=== PATIENT | female | born 1995 | race Caucasian/White ===

== ENCOUNTER 2020-02-13 14:08 | Emergency (ER) | payer SELFPAY ==
[2020-02-13 14:16] VITALS: BP 118/59; PULSE 85; RESP 16; TEMP 36.7; O2SAT 98; BMI 23.8
--- NOTE | 2020-02-13 14:37 | ED_ITS ---
HPI - Abdominal Pain General Chief Complaint: Abdominal Pain <Darvin Owen NP - Last Filed: 02/13/20 17:53> Stated Complaint: STOMACH PAIN <Darvin Owen NP - Last Filed: 02/13/20 17:53> Time Seen by Provider: 02/13/20 14:30 <Darvin Owen NP - Last Filed: 02/13/20 17:53> Source: patient <Darvin Owen NP - Last Filed: 02/13/20 17:53> Mode of arrival: ambulatory <Darvin Owen NP - Last Filed: 02/13/20 17:53> Limitations: no limitations <Darvin Owen NP - Last Filed: 02/13/20 17:53> History of Present Illness HPI narrative: 25-year-old female who is primarily [place]-speaking all interviews connecting the presence of [facility] [employer] who has a history of G4,P4,A0 by way of C-sections her last was 4 years ago who presents with complaint of 4 days of epigastric abdominal pain that is being described as intermittent burning discomfort which is aggravated with certain foods and drinking. States pain will improve with rest. There is no associated nausea or vomiting. She denies any other abdominal history. Not currently taking any medications. Denies any recent travel or sick contacts. No URI symptoms. <Darvin Owen NP - Last Filed: 02/13/20 17:53> Pertinent past history: none <Darvin Owen NP - Last Filed: 02/13/20 17:53> Onset (ago): day(s) <Darvin Owen NP - Last Filed: 02/13/20 17:53> Pain Consistency: intermittent <Darvin Owen NP - Last Filed: 02/13/20 17:53> Location: epigastric <Darvin Owen NP - Last Filed: 02/13/20 17:53> Severity: mild <Darvin Owen NP - Last Filed: 02/13/20 17:53> Quality: burning <Darvin Owen NP - Last Filed: 02/13/20 17:53> Radiation: none <Darvin Owen NP - Last Filed: 02/13/20 17:53> Migration to: no migration <Darvin Owen NP - Last Filed: 02/13/20 17:53> Exacerbating factors: eating <Darvin Owen NP - Last Filed: 02/13/20 17:53> Relieving factors: rest <Darvin Owen NP - Last Filed: 02/13/20 17:53> Associated symptoms: denies other symptoms <Darvin Owen NP - Last Filed: 02/13/20 17:53> Treatments prior to arrival: other ( Has not tried anything OTC) <Darvin Owen NP - Last Filed: 02/13/20 17:53> Related Data Home Medications: Previous Rx's Medication Instructions Recorded omeprazole magnesium [Prilosec OTC] 20 mg PO DAILY #14 tab 02/13/20 <ERIKA Matamoros Last Filed: 02/13/20 17:53> Allergies/Adverse Reactions: Allergies Allergy/AdvReac Type Severity Reaction Status Date / Time No Known Allergies Allergy Verified 02/13/20 14:18 <Darvin Owen NP - Last Filed: 02/13/20 17:53> Review of Systems Review of Systems Constitutional: No Weight loss, No Fever, No Chills, No Night Sweats, No Fatigue, No Malaise ENT/Mouth: No Hearing loss, No Ear Pain, No Nasal Congestion, No Sinus Pain, No Hoarseness, No sore throat, No Rhinorrhea, No Swallowing Difficulty Eyes: No Eye Pain, No Swelling, No Redness, No Foreign Body, No Discharge, No Vision Changes Cardiovascular: No Chest Pain, No SOB, No Dyspnea on Exertion, No Orthopnea, No Edema, No Palpitations Respiratory: No Cough, No Sputum, No Wheezing, No Smoke Exposure, No Dyspnea Gastrointestinal: No Nausea, No Vomiting, No Diarrhea, No Constipation, + abd pain as noted in HPI, No Hematochezia, No Melena Genitourinary: no irregular bleeding, No Dysuria, No Urinary Frequency, No Hematuria, No Urinary Incontinence, No Urgency, No Flank Pain, No Urinary Flow Changes, No Hesitancy Musculoskeletal: No joint pain, No Myalgias, No Joint Swelling Skin: No Skin Lesions, No rash Neuro: No Weakness, No Numbness, No Paresthesias, No Loss of Consciousness, No Dizziness, No Headache Psych: No Social Issues Heme/Lymph: No Bruising, No Bleeding,No Lymphadenopathy Endocrine: No Polyuria, No Polydipsia, No Temperature Intolerance <Darvin Owen NP - Last Filed: 02/13/20 17:53> Yes all other systems are reviewed and are negative <Darvin Owen NP - Last Filed: 02/13/20 17:53> Physical Exam Vital Signs: Vital Signs: Last Vital Signs Temp 98.0 F 02/13/20 14:16 Pulse 85 02/13/20 14:16 Resp 16 02/13/20 14:16 BP 118/59 L 02/13/20 14:16 Pulse Ox 98 02/13/20 14:16 Body Mass Index 23.8 Reviewed <Darvin Owen NP - Last Filed: 02/13/20 17:53> Vital Signs: Last Vital Signs Temp 98.0 F 02/13/20 14:16 Pulse 85 02/13/20 14:16 Resp 16 02/13/20 14:16 BP 118/59 L 02/13/20 14:16 Pulse Ox 98 02/13/20 14:16 Body Mass Index 23.8 <Braden Ramires MD - Last Filed: 03/05/20 09:45> Const: General: cooperative and healthy appearing; No acute distress or intoxicated appearing <Darvin Owen NP - Last Filed: 02/13/20 17:53> Nutritional Appearance: average body habitus <Darvin Owen NP - Last Filed: 02/13/20 17:53> Orientation/consciousness: patient oriented x3 <Darvin Owen NP - Last Filed: 02/13/20 17:53> HENMT: Head: Yes normal to inspection <Darvin Owen NP - Last Filed: 02/13/20 17:53> Ears: hearing grossly normal bilaterally <Darvin Owen NP - Last Filed: 02/13/20 17:53> Eyes: General: appearance normal, both eyes and all related structures <Jacques Owen NP - Last Filed: 02/13/20 17:53> Visual Marin: normal visual marin by confrontation <Darvin Owen NP - Last Filed: 02/13/20 17:53> Neck: Neck: Yes normal visual inspection and No tender <Darvin Owen NP - Last Filed: 02/13/20 17:53> Thyroid: Thyroid normal <[facility] Brayden LAUNCHMAN - Last Filed: 02/13/20 17:53> Chest: Chest palpation & inspection: normal inspection of the chest <Darvin Owen LAUNCHMAN - Last Filed: 02/13/20 17:53> Resp: Effort & Inspection: normal respiratory effort <[facility] Brayden LAUNCHMAN - Last Filed: 02/13/20 17:53> Cardio: Jugular venous distension: no JVD <[facility] Brayden LAUNCHMAN - Last Filed: 02/13/20 17:53> Rhythm: regular rhythm <[facility] Brayden LAUNCHMAN - Last Filed: 02/13/20 17:53> Heart sounds: S1 normal heart sound present <[facility] Brayden LAUNCHMAN - Last Filed: 02/13/20 17:53> GI: Inspection: Yes normal to inspection <[facility] Brayden LAUNCHMAN - Last Filed: 02/13/20 17:53> Palpation (GI): Soft to palpation and Tenderness to palpation present (GI) ( very slight in the epigastrium) not at McBurney's point, not periumbilically, Holguin's sign negative and obturator sign negative <[facility] Brayden LAUNCHMAN - Last Filed: 02/13/20 17:53> Percussion: Yes normal to percussion <[facility] Brayden LAUNCHMAN - Last Filed: 02/13/20 17:53> Auscultation: normal bowel sounds <[facility] Brayden LAUNCHMAN - Last Filed: 02/13/20 17:53> : General: Yes no CVA tenderness <[facility] Owen LAUNCHMAN - Last Filed: 02/13/20 17:53> Back/Spine/Pelvis: Back: no CVA tenderness <[facility] Brayden LAUNCHMAN - Last Filed: 02/13/20 17:53> Skin: General skin exam: no rashes or lesions noted <[facility] Owen LAUNCHMAN - Last Filed: 02/13/20 17:53> Neuro: General: patient oriented x3 <Darvin Owen LAUNCHMAN - Last Filed: 02/13/20 17:53> Extrem: General: Yes normal to inspection <[facility] OwenERIKA coronel - Last Filed: 02/13/20 17:53> Course Course Course Narrative: labs overtly stable. UA equivocal she is symptomatic will send this for culture And defer on treatment this time. A/P consistent with gastroesophageal reflux disease. Abdominal exam is relatively benign. She feels much better after GI cocktail. <Darvin Owen NP - Last Filed: 02/13/20 17:53> I have reviewed the chart <Braden Ramires MD - Last Filed: 03/05/20 09:45> MDM - Abdominal Pain Differential Diagnosis Differential diagnosis: Likely abdominal pain ( gastroesophageal reflux disease) and peptic ulcer disease; Unlikely aortic dissection, acute appendicitis, bowel perforation, calculus of kidney, constipation, diverticulitis, gastroenteritis, gastritis, renal colic and small bowel obstruction <Darvin Owen NP - Last Filed: 02/13/20 17:53> Medical Records Attestation: I reviewed the patient's medical records. <Darvin Owen NP - Last Filed: 02/13/20 17:53> Lab Data Attestation: I reviewed the patient's lab results. <Darvin Owen NP - Last Filed: 02/13/20 17:53> Result diagrams: : 02/13/20 15:11 02/13/20 15:11 <Darvin Owen NP - Last Filed: 02/13/20 17:53> Labs: Lab Results 02/13/20 02/13/20 02/13/20 Range/Units 15:11 15:11 16:37 WBC 6.1 (4.8-10.8) X10*3/uL RBC 4.44 (4.20-5.50) X10*6/uL Hgb 12.6 (12.0-16.0) g/dl Hct 39.0 (37-47) % MCV 87.8 (80-98) fL MCH 28.4 (27.0-33.0) pg MCHC 32.3 (31.0-35.0) g/dl RDW 13.7 (11.0-16.0) % Plt Count 238 (160-400) X10*3/uL MPV 10.6 (9.4-12.3) fL Immature Gran % (Auto) 0.3 (0.0-0.4) % Neut % (Auto) 55.8 (45-73) % Lymph % (Auto) 31.2 (20-40) % [place] % (Auto) 8.6 (2-11) % Eos % (Auto) 3.3 (0-4) % Baso % (Auto) 0.8 (0-2) % Lymph # (Auto) 1.9 (1.2-4.9) X10*3/uL [place] # (Auto) 0.5 (0.1-1.2) X10*3/uL Eos # (Auto) 0.2 (0.0-0.4) X10*3/uL Baso # (Auto) 0.1 (0.0-0.2) X10*3/uL Abs Immat Gran (auto) 0.02 (0.00-0.03) X10*3/uL Absolute Neuts (auto) 3.4 (2.0-8.3) X10*3/uL Absolute Nucleated RBC 0.000 (0.0-0.012) X10*3/uL Nucleated RBC % (auto) 0.0 (0.0-0.2) /100WBC Sodium 137 (135-145) mmol/L Potassium 4.6 (3.3-5.1) mmol/l Chloride 107 (96-108) mmol/L Carbon Dioxide 24 (22-29) mmol/L Anion Gap 11 L (12-20) BUN 12 (9-16) mg/dL Creatinine 0.85 (0.5-1.4) mg/dL Estim Creat Clear Calc 80.0 Estimated GFR > 60 Random Glucose 79 (60-115) mg/dL Calcium 8.7 (8.4-10.2) mg/dL Total Bilirubin 0.8 (0.0-1.0) mg/dL AST 20 (5-31) U/L ALT 36 H (0-31) U/L Alkaline Phosphatase 59 (39-117) U/L Total Protein 7.3 (6.5-8.0) g/dL Albumin 4.0 (3.5-5.0) g/dL Urine Color YELLOW Urine Appearance HAZY Urine pH 6.0 (5.0-8.0) Ur Specific [place] 1.025 (1.005-1.025) Urine Protein NEG (NEG-TRACE) MG/DL Urine Glucose (UA) NEG (NEG) MG/DL Urine Ketones NEG (NEG) MG/DL Urine Blood NEG (NEG) Urine Nitrite NEG (NEG) Ur Leukocyte Esterase TRACE H (NEG) Urine RBC 0-2 (0) /HPF Urine WBC 1-4 (0-4) /HPF Ur Squamous Epith Cells 1+ /LPF Urine Bacteria 2+ /LPF Urine Test NEGATIVE (NEGATIVE) <Darvin Owen NP - Last Filed: 02/13/20 17:53> Lab Results 02/13/20 02/13/20 02/13/20 Range/Units 15:11 15:11 16:37 WBC 6.1 (4.8-10.8) X10*3/uL RBC 4.44 (4.20-5.50) X10*6/uL Hgb 12.6 (12.0-16.0) g/dl Hct 39.0 (37-47) % MCV 87.8 (80-98) fL MCH 28.4 (27.0-33.0) pg MCHC 32.3 (31.0-35.0) g/dl RDW 13.7 (11.0-16.0) % Plt Count 238 (160-400) X10*3/uL MPV 10.6 (9.4-12.3) fL Immature Gran % (Auto) 0.3 (0.0-0.4) % Neut % (Auto) 55.8 (45-73) % Lymph % (Auto) 31.2 (20-40) % [place] % (Auto) 8.6 (2-11) % Eos % (Auto) 3.3 (0-4) % Baso % (Auto) 0.8 (0-2) % Lymph # (Auto) 1.9 (1.2-4.9) X10*3/uL [place] # (Auto) 0.5 (0.1-1.2) X10*3/uL Eos # (Auto) 0.2 (0.0-0.4) X10*3/uL Baso # (Auto) 0.1 (0.0-0.2) X10*3/uL Abs Immat Gran (auto) 0.02 (0.00-0.03) X10*3/uL Absolute Neuts (auto) 3.4 (2.0-8.3) X10*3/uL Absolute Nucleated RBC 0.000 (0.0-0.012) X10*3/uL Nucleated RBC % (auto) 0.0 (0.0-0.2) /100WBC Sodium 137 (135-145) mmol/L Potassium 4.6 (3.3-5.1) mmol/l Chloride 107 (96-108) mmol/L Carbon Dioxide 24 (22-29) mmol/L Anion Gap 11 L (12-20) BUN 12 (9-16) mg/dL Creatinine 0.85 (0.5-1.4) mg/dL Estim Creat Clear Calc 80.0 Estimated GFR > 60 Random Glucose 79 (60-115) mg/dL Calcium 8.7 (8.4-10.2) mg/dL Total Bilirubin 0.8 (0.0-1.0) mg/dL AST 20 (5-31) U/L ALT 36 H (0-31) U/L Alkaline Phosphatase 59 (39-117) U/L Total Protein 7.3 (6.5-8.0) g/dL Albumin 4.0 (3.5-5.0) g/dL Urine Color YELLOW Urine Appearance HAZY Urine pH 6.0 (5.0-8.0) Ur Specific [place] 1.025 (1.005-1.025) Urine Protein NEG (NEG-TRACE) MG/DL Urine Glucose (UA) NEG (NEG) MG/DL Urine Ketones NEG (NEG) MG/DL Urine Blood NEG (NEG) Urine Nitrite NEG (NEG) Ur Leukocyte Esterase TRACE H (NEG) Urine RBC 0-2 (0) /HPF Urine WBC 1-4 (0-4) /HPF Ur Squamous Epith Cells 1+ /LPF Urine Bacteria 2+ /LPF Urine Test NEGATIVE (NEGATIVE) <Braden Ramires MD - Last Filed: 03/05/20 09:45> Discharge Plan Discharge Clinical Impression: Abdominal pain <Darvin Owen NP - Last Filed: 02/13/20 17:53> Patient Disposition: Home, Self-Care <Darvin Owen NP - Last Filed: 02/13/20 17:53> Instructions: Gastroesophageal Reflux Disease (ED) <Darvin Owen NP - Last Filed: 02/13/20 17:53> Additional Instructions: Whitman diet Avoid acidic food Small meals Antacid as prescribed Follow-up as instructed Return if any concerns or worsening symptoms Thank you <Darvin Owen NP - Last Filed: 02/13/20 17:53> Prescriptions: New omeprazole magnesium [Prilosec OTC] 20 mg tablet,delayed release (DR/EC) 20 mg PO DAILY Qty: 14 RF: 0 <Darvin Owen NP - Last Filed: 02/13/20 17:53> Referrals: Physician,None [Primary Care Provider] - 1 week ( your primary care doctor) <Darvin Owen NP - Last Filed: 02/13/20 17:53> Interventions: ED Discharge Assessment Last Done: 02/13/20 18:09 <Darvin Owen NP - Last Filed: 02/13/20 17:53> Discharge Date/Time: 02/13/20 18:09 <Darvin Owen NP - Last Filed: 02/13/20 17:53> PMFSH Past Medical History Medical History: Medical History No known health problems <Darvin Owen NP - Last Filed: 02/13/20 17:53> Social History Social History: Social History Advance Directives: No Advance Directives Information Provided: No <Darvin Owen NP - Last Filed: 02/13/20 17:53>
[2020-02-13 15:17] LABS: Basophils Absolute Auto 0.1 X10*3/uL (0.0-0.2); Basophils Percent Auto 0.8 % (0-2); Eosinophils Absolute Auto 0.2 X10*3/uL (0.0-0.4); Eosinophils Percent Auto 3.3 % (0-4); Hemoglobin 12.6 g/dl (12.0-16.0); Imm Gran Abs Auto 0.02 X10*3/uL (0.00-0.03); Imm Gran Pct Auto 0.3 % (0.0-0.4); Lymphocytes Absolute Auto 1.9 X10*3/uL (1.2-4.9); Lymphocytes Percent Auto 31.2 % (20-40); MANUAL DIFF FLAG NO; Mean Corpuscular HGB Conc 32.3 g/dl (31.0-35.0); Mean Corpuscular Hemoglobin 28.4 pg (27.0-33.0); Mean Corpuscular Volume 87.8 fL (80-98); Mean Platelet Volume 10.6 fL (9.4-12.3); Monocytes Absolute Auto 0.5 X10*3/uL (0.1-1.2); Monocytes Percent Auto 8.6 % (2-11); Neutrophils Absolute Auto 3.4 X10*3/uL (2.0-8.3); Neutrophils Percent Auto 55.8 % (45-73); Platelet Count 238 X10*3/uL (160-400); Red Blood Count 4.44 X10*6/uL (4.20-5.50); Red Cell Distribution Width 13.7 % (11.0-16.0); White Blood Count 6.1 X10*3/uL (4.8-10.8)
[2020-02-13 15:38] LABS: Alanine Aminotransferase 36 U/L (0-31); Alkaline Phosphatase 59 U/L (39-117); Anion Gap 11 (12-20); Aspartate Amino Transferase 20 U/L (5-31); Bilirubin Total 0.8 mg/dL (0.0-1.0); Blood Urea Nitrogen 12 mg/dL (9-16); Calcium 8.7 mg/dL (8.4-10.2); Carbon Dioxide 24 mmol/L (22-29); Chloride 107 mmol/L (96-108); Estimated Glomerular Filt Rate > 60; Glucose Random 79 mg/dL (60-115); Potassium 4.6 mmol/l (3.3-5.1); Sodium 137 mmol/L (135-145); Total Protein 7.3 g/dL (6.5-8.0)
[2020-02-13] MEDS: Magnesium Hydrox/Alum Hydrox 30 ML ORAL.SUSP PO (16:32)
[2020-02-13] MEDS: Lidocaine HCl Viscous 2 % 15 ML SOLUTION 10 ML MUCOUS MEM (16:32)
[2020-02-13 17:28] LABS: Glucose Urine UA NEG (NEG); Leukocyte Esterase Urine TRACE (NEG); Nitrite Urine NEG (NEG); Specific Gravity - Urine 1.025 (1.005-1.025); Urine Blood NEG (NEG); Urine Ketones NEG (NEG); Urine Protein NEG (NEG-TRACE)
[2020-02-13 17:32] LABS: Appearance Urine HAZY; Color Urine YELLOW
[2020-02-13 17:43] LABS: UPreg QC Valid YES; Urine Pregnancy NEGATIVE (NEGATIVE)
[2020-02-13 17:51] LABS: Bacteria Urine 2+ /LPF; RBC Urine 0-2 /HPF (0); Squamous Epithelial Cell Urine 1+ /LPF
== END 2020-02-13 18:09 | disposition home or self-care (01) ==
PROVIDERS: Nurse Practitioner Primary Care; Emergency Provider Emergency Medicine
DX: R10.13 Epigastric pain (principal); Z79.899 Other long term (current) drug therapy
CPT/HCPCS: 36415; 80053; 81001; 81025; 85025; 87086; 96360; 99283; 99284